=== PATIENT | male | born 1940 | race Caucasian/White ===

== ENCOUNTER 2017-03-01 10:53 | Inpatient (IN) | payer OTHER ==
[~2017-03-01] VITALS: Ht 182.9 cm; Wt 73.9 kg
[~2017-03-01 10:53] MED LIST: AMOXICILLIN 50500 MG PO; ASPIR 8181 MG PO; AUGMENTIN 875875 MG PO; CIPRO500 MG PO; CRESTOR10 MG PO; DUONEB 2.5-0.5 M3 ML INH; FLAGYL500 MG PO; KEPPRA 500 MG PER TUBE; KEPPRA 500 MG500 M1 PER TUBE; LIPITOR 10 MG10 M1 PER TUBE; LISINOPRIL5 MG PO; LOPRESSOR50 PO; MIRALAX17 GM PER TUBE; NICOTINE TRANSD14 M1 TRANSDERM; NICOTINE TRANSD21 M1 TRANSDERM; NITROGLYCERIN0.4 MG SUBLING; NORCO 10-325 T1 EACH PO; PEPCID20 MG PO; PLAVIX 75 MG TA75 M1 PO; TOPROL XL25 MG PO; UNICOMPLEX M TA1 TA1 PO; ZANTAC 150MG T150 MG PO
[2017-03-01 11:18] LABS: ABSOLUTE BASOPHILS 0.1 thou/uL (0.0-0.2); ABSOLUTE EOSINOPHILS 0.2 thou/uL (0.0-0.7); ABSOLUTE LYMPHOCYTES 2.7 thou/uL (0.8-5.3); ABSOLUTE MONOCYTES 0.7 thou/uL (0.0-1.2); ABSOLUTE NEUTROPHILS 4.6 thou/uL (1.6-8.1); BASOPHILS 1.1 %; EOSINOPHILS 1.8 %; HEMATOCRIT 44.4 % (42.0-52.0); LYMPHOCYTES 33.1 %; MCH 32.2 pg (26.0-34.0); MCHC 33.7 g/dL (28.0-37.0); MCV 95.4 fL (80.0-100.0); MPV 6.7 fl. (7.2-11.1); NUCLEATED RBCS 0 /100WBC; PLATELET COUNT* 250 thou/uL (150-400); RBC 4.65 mil/uL (4.50-6.00); RDW-CV 12.9 % (10.5-14.5); WBC 8.3 thou/uL (4.0-11.0)
[2017-03-01 11:23] LABS: ANION GAP 5 mmol/L (7-16); BUN 20 mg/dL (7-18); CALCIUM 9.3 mg/dL (8.5-10.1); CHLORIDE 102 mmol/L (98-107); CO2 31 mmol/L (21-32); CREATININE 1.1 mg/dL (0.6-1.3); GLUCOSE 90 mg/dL (70-99); POTASSIUM 4.3 mmol/L (3.5-5.1); SODIUM 138 mmol/L (136-145)
[2017-03-01 11:26] LABS: URINE BILIRUBIN NEGATIVE (Negative); URINE BLOOD NEGATIVE (Negative); URINE CLARITY CLEAR; URINE COLOR YELLOW; URINE GLUCOSE-RANDOM NEGATIVE (Negative); URINE KETONES NEGATIVE (Negative); URINE LEUKOCYTES-REFLEX 1+ (Negative); URINE NITRITE-REFLEX NEGATIVE (Negative); URINE PROTEIN NEGATIVE (Negative); URINE SPECIFIC GRAVITY <= 1.005 (1.005-1.030); URINE UROBILINOGEN 0.2 E.U./dl (0.2-1.0)
[2017-03-01 11:28] LABS: APTT 28.7 Seconds (25.0-31.3); INR 1.1; PROTIME 10.5 Seconds (9.20-11.50)
[2017-03-01 11:34] LABS: ALBUMIN 3.9 g/dL (3.4-5.0); ALKALINE PHOSPHATASE 61 U/L (46-116); NT-PRO BRAIN NAT PEPTIDE 67 pg/mL (<300); SGOT 22 U/L (15-37); SGPT 24 U/L (30-65); TOTAL BILIRUBIN 0.5 mg/dL (<0.1-1.0); TOTAL PROTEIN 7.8 g/dL (6.4-8.2); TROPONIN-I LEVEL <0.06 ng/mL (<0.06)
[2017-03-01 11:36] LABS: BACTERIA-REFLEX None Seen /HPF (None Seen); CASTS None Seen /LPF (None Seen); CRYSTALS None Seen /LPF (None Seen); SQUAMOUS NONE SEEN /LPF (0-3); URINE RBC None Seen /HPF (0-2); URINE WBC-REFLEX 0-5 Rare /HPF (0-5)
[2017-03-01 15:32] VITALS: BP 91/51
--- NOTE | 2017-03-01 16:42 | EKG ---
[place] [address] ELECTROCARDIOGRAM REPORT Name: JEAN PRICE Room: [place] [address] ADM IN [facility]#: [id number] Admission: 03/01/17 Attend Phys: Madelaine Christopher Discharge: Date of : 44 Report #: [id number] THIS REPORT FOR: //name// [facility] ED Test Date: 2017-03-01 Test Time: 11:20:04 Pat Name: JEAN PRICE Department: Room: [facility] Gender: Systems Technologist: Guilherme DENISE : 1940 Requested By: Víctor Falcon Order Number: [id number] MD: Anastacio Flood Measurements Intervals [place] Rate: 62 P: 71 WV: 185 QRS: 44 QRSD: 89 T: 52 QT: 413 QTc: 420 Interpretive Statements Sinus rhythm Compared to ECG 02/04/2016 10:21:23 No significant changes Electronically Signed On 03-01-2017 16:42:15 BIOLOGY ADJUNCT INSTRUCTOR by Anastacio Flood [email or web address] <ELECTRONICALLY SIGNED> By: Anastacio Flood MD, [facility] 03/01/17 1642 1120 1120 Anastacio Flood MD, [facility] /EPI
[2017-03-01 16:43] VITALS: BP 104/66
[2017-03-01 17:00] VITALS: BP 128/70
[2017-03-01 20:00] VITALS: BP 115/68
[2017-03-01 21:40] LABS: CHOLESTEROL 148 mg/dL (<200); HDL CHOLESTEROL 57 mg/dL (>40); LDL CHOLESTEROL 84 mg/dL (<100); TC:HDL 2.6 Ratio (Not establshd); TRIGLYCERIDE 39 mg/dL (<150); VLDL 8 mg/dL (<40)
[2017-03-01 21:41] LABS: SERUM ASSESSMENT Clear
[2017-03-02] VITALS: BP 84/48
[2017-03-02 04:00] VITALS: BP 111/57
[2017-03-02 08:00] VITALS: BP 113/68
[2017-03-02 12:00] VITALS: BP 107/52
[2017-03-02 16:00] VITALS: BP 114/52
[2017-03-02 22:00] VITALS: BP 110/56
[2017-03-03] VITALS (8 sets, daily range): BP systolic 94–140; BP diastolic 42–70
[2017-03-03 04:09] LABS: GLYCOHEMOGLOBIN (HGB A1C) 5.3 % (4.8-5.6)
[2017-03-03 10:34] LABS: HEMATOCRIT 34.4 % (42.0-52.0)
[2017-03-03 10:35] LABS: HEMOGLOBIN 11.7 gm/dL (14.0-18.0)
[2017-03-03 10:40] LABS: CALCIUM 8.3 mg/dL (8.5-10.1); CREATININE 1.1 mg/dL (0.6-1.3); POTASSIUM 4.2 mmol/L (3.5-5.1)
--- NOTE | 2017-03-03 13:22 | OP ---
[facility] [address] [place] [address] OPERATIVE REPORT Name: JEAN PRICE Room: [address] IN [facility]#: [id number] Admission: 03/01/17 Attend Phys: Madelaine Christopher Discharge: Date of : 44 Report #: [id number] THIS REPORT FOR: //name// CC: Ania Crenshaw DATE OF SERVICE: 03/03/2017 PREOPERATIVE DIAGNOSIS: Symptomatic high-grade left carotid artery stenosis. POSTOPERATIVE DIAGNOSIS: Symptomatic high-grade left carotid artery stenosis. OPERATION: 1. Left carotid endarterectomy with bovine pericardial patch angioplasty. 2. Completion intraoperative duplex. SURGEON: Alejandro Thompson DO CARE ADMINISTRATIVE TECH: SUSANNE Mckeon ANESTHESIA: General. ESTIMATED BLOOD LOSS: 150 mL. FLUIDS: 1500 crystalloid. URINE OUTPUT: None. SPECIMENS: Left carotid plaque. COMPLICATIONS: None. IMPLANTS: A 0.8 x 8 Bovine pericardial patch in the left carotid artery. FINDINGS: He had a 95% soft friable stenosis within the left carotid artery. This endarterectomized well. Completion duplex demonstrated no intraluminal defects with excellent continuous diastolic flow through the internal carotid artery. He looked neurologically intact in the operating room. CLINICAL HISTORY: The patient is a 76-year-old man who was initially seen in outpatient for asymptomatic carotid stenosis; however, he subsequently 3 days prior to admission developed some left facial numbness. This resolved spontaneously. It was felt that he is probably now experiencing TIA symptoms. He was taken today for carotid endarterectomy and stroke risk reduction. DETAILS OF PROCEDURE: After informed consent was obtained, the patient was [facility] [address] [place] [address] OPERATIVE REPORT Name: ALBERTJEAN Edwin Room: [address] IN [facility]#: [id number] Admission: 03/01/17 Attend Phys: Madelaine Christopher Discharge: Date of : 44 Report #: [id number] taken to the operating room and placed on the OR bed in supine position. He was administered general anesthesia by the anesthesia team. Left neck was prepped and draped in usual sterile fashion. Full timeout was performed identifying correct patient and procedure. Next, a longitudinal incision was made along the anterior border of sternocleidomastoid. Dissection was carried down through skin and subcutaneous tissues, both sharply with electrocautery. The carotid sheath was entered. The facial vein was identified, was ligated between 2-0 silk ties and divided. The vagus nerve was retracted in posterolateral position with the jugular vein. The common carotid artery was circumferentially mobilized and controlled with umbilical tape and Rumel tourniquet. I then dissected out the external and superior thyroid arteries and controlled these with Silastic vessel loops in Rogers fashion. I then dissected out the distal internal carotid artery and controlled with a Silastic vessel loop. At this point, I administered 8000 units of intravenous heparin. This allowed to circulate for 3 minutes. I then sequentially clamped the internal, external and common carotid arteries. I made an arteriotomy, extended with Rogers scissors in the normal common and internal carotid artery. I then placed a 10-Chinese [place] shunt in standard fashion. Doppler interrogation confirmed flow through the shunt. I then performed a standard endarterectomy with eversion endarterectomy of the external carotid artery. I tailored to good distal endpoint of the internal carotid artery. I freed the artery of all intimal defects. Flushed numerous times with heparinized saline. Once satisfied with the endarterectomy, I then sewed a Bovine pericardial patch in place with running 6-0 Prolene suture. Prior to completion of the suture line, the shunt was removed. The carotid was sequentially reclamped. Again, flushed it with heparinized saline, allowed the arteries to fore and backbleeding and flushed with heparinized saline. I then completed the suture line, restored flow first up the external carotid artery and after several heartbeats to the internal carotid artery. I then performed completion intraoperative duplex. Again, this demonstrated no intraluminal defects with good continuous diastolic flow through the internal carotid artery. I then partially reversed the heparin with 50 mg protamine. Once hemostasis was ensured in the wound, the wound was irrigated with antibiotic solution and was closed in layers with 2-0 and 3-0 Vicryl, 4-0 Monocryl in skin and Dermabond was applied. All sponge, sharp and instrument counts were reported as correct x 2. He tolerated the procedure well and was extubated in the operating room, neurologically intact, moving everything appropriately. <ELECTRONICALLY SIGNED> By: Alejandro Thompson DO 03/03/17 1322 1042 [id number] Thompson DO /nt
[2017-03-03 14:54] LABS: CALCIUM 8.7 mg/dL (8.5-10.1); CREATININE 1.1 mg/dL (0.6-1.3); MAGNESIUM 1.9 mg/dL (1.8-2.4); POTASSIUM 4.4 mmol/L (3.5-5.1)
[2017-03-04] VITALS (12 sets, daily range): BP systolic 86–134; BP diastolic 42–54
[2017-03-04 05:30] LABS: ABSOLUTE BASOPHILS 0.1 thou/uL (0.0-0.2); ABSOLUTE LYMPHOCYTES 1.5 thou/uL (0.8-5.3); ABSOLUTE MONOCYTES 0.8 thou/uL (0.0-1.2); ABSOLUTE NEUTROPHILS 6.3 thou/uL (1.6-8.1); BASOPHILS 0.6 %; EOSINOPHILS 0.4 %; HEMATOCRIT 34.3 % (42.0-52.0); HEMOGLOBIN 11.8 gm/dL (14.0-18.0); LYMPHOCYTES 17.4 %; MCH 32.6 pg (26.0-34.0); MCHC 34.3 g/dL (28.0-37.0); MONOCYTES 8.7 %; MPV 7.1 fl. (7.2-11.1); NUCLEATED RBCS 0 /100WBC; PLATELET COUNT* 180 thou/uL (150-400); POLYS 72.9 %; RBC 3.61 mil/uL (4.50-6.00); RDW-CV 12.3 % (10.5-14.5); WBC 8.6 thou/uL (4.0-11.0)
[2017-03-04 06:11] LABS: CALCIUM 8.5 mg/dL (8.5-10.1)
[2017-03-04] MEDS ORDERED: NORCO 5-325 TA1 EACH PO (10:54)
--- NOTE | 2017-03-04 12:13 | S ---
[address] [address] SURGICAL PATH RPT PROCEDURE Name: JEAN PRICE Room: [address] IN [facility].#: [id number] Admission: 03/01/17 Date of : 44 Discharge: Report #: [id number] Path Case #: [id number] PATHOLOGY REPORT COLLECTION DATE: 03/03/2017 RECEIVED DATE: 03/03/2017 SUBMITTING PHYS: Dr. Alejandro Thompson OTHER PHYS: Dr. Urban Viera SPECIMEN(S) RECEIVED: A.Left carotid plaque * * * * * * * * * * * * FINAL DIAGNOSIS: Left carotid plaque: - Fibrointimal atherosclerotic plaque with prominent calcification. (TALA:pit; 03/04/2017) PATHOLOGIST: Julio Cesar Miller M.D. REPORT ELECTRONICALLY SIGNED BY: Julio Cesar Miller M.D. DATE/TIME: 03/04/2017 12:13 * * * * * * * * * * * * GROSS PATHOLOGY: The specimen is received in formalin, labeled "RjJean sibley, left carotid plaque," and consists of 2 segments of yellow-greene rubbery to calcified soft tissue measuring 2.5 x 1.0 x 0.9 cm and 1.1 x 0.6 x 0.2 cm. The specimens are approximately 60% calcified. Fiberglass Pipe Covering Supervisor sections are submitted in cassette A1 following decalcification. (SDY; 03/03/2017) CLINICAL HISTORY: Left carotid artery stenosis INITIAL CPT CODE(S): A; 20973, 07859 Professional services performed by [facility] at [facility] [address] [place] [address] Technical services performed by [facility] at [address] [place] [address], [facility] [address], [place] [address]. [facility] [address] [facility] [place] [address] SURGICAL PATH RPT PROCEDURE Name: JEAN PRICE Room: [facility] IN [facility].#: [id number] Admission: 03/01/17 Date of : 44 Discharge: Report #: [id number] Path Case #: [id number] [facility] [address] [address] PHONE: [phone] DIRECTOR: Jordan Flor M.D. * * * END OF REPORT * * *
--- NOTE | 2017-03-11 20:10 | CON ---
[address] [address] CONSULTATION Name: JEAN PRICE Room: [address]#: [id number] Admission: 03/01/17 Attend Phys: Madelaine Christopher Discharge: 03/04/17 Date of : 44 Report #: [id number] THIS REPORT FOR: //name// CC: Ania Crenshaw DATE OF SERVICE: 03/02/2017 HISTORY OF PRESENT ILLNESS: This is a 76-year-old male patient who was evaluated for any neurological etiology for the patient's numbness on the left side of the face. This patient presented to emergency room with recurrent episode of left-sided numbness of the face. He indicated that it did not involve the left upper or left lower extremity. The episodes were transient and mild and lasted about 10 minutes. They came spontaneously and then resolved spontaneously. There was no headache associated with it and there was no motor deficit associated with it. Presently, he is asymptomatic. REVIEW OF SYSTEMS: Indicate that he had a cardiac arrest in 2014. At that time, he was diagnosed with PR and was managed. He denies any history of TIAs or any stroke in the past. He has been a smoker for a long time and still continued to smoke. He does indicate he has hypertension, but his hypertension is reasonably controlled with the medications. He does take aspirin and indicate that he takes some cholesterol medication. He does not know what cholesterol medications he is on and the best I can tell, he is not on any statin while in the hospital. His LDL during this admission was 84, although his HDL is 57. He feels back to his baseline. He is hard of hearing, but his vision is fine and he does not have any chest pain or respiratory difficulty, GI, , musculoskeletal, constitutional, dermatological, hematological, psychiatric, throat or endocrine symptom associated with present symptomatology. PAST MEDICAL HISTORY: Negative for TIA. FAMILY HISTORY: Negative for early age stroke. SOCIAL HISTORY: He does not drink any alcohol on a regular basis, but does drink alcohol socially. He does smoke. PHYSICAL EXAMINATION: The patient's examinations indicate he is alert, responsive, and oriented. His speech, concentration, fund of knowledge and memory is at his baseline. Cranial nerve examination 2-12 is unremarkable. He has a symmetrical strength, sensation, reflexes and tone in all 4 extremities. There is no cerebellar sign or papilledema. He is able to ambulate without any assistance. He is a very well-developed individual who does not have any dysmorphic features of eyes, ears and face. His vision looks adequate, but [place] [address] CONSULTATION Name: JEAN PRICE Room: [address]#: [id number] Admission: 03/01/17 Attend Phys: Madelaine Christopher Discharge: 03/04/17 Date of : 44 Report #: [id number] for a long time. He does not have any carotid bruit in spite of his stenosis at least any the best I can tell, he does not have a thyroid mass. His pulses are somewhat difficult to feel, but he has no edema, cyanosis or jaundice. Cardiac examination shows normal heart sound and there is no atrial fibrillations or murmur. No respiratory difficulty or any rhonchi on either side. His vital signs indicate a blood pressure of 113/68, respiration is 18, pulse is 71, and temperature 98.8. His blood pressure has fallen down when he has been here. He had lab done and his white count is normal. Cholesterol is as described above. Imaging studies indicate that MRI of the brain showed no acute process. CTA demonstrates finding consistent with a left carotid stenosis. MRA was unremarkable. IMPRESSION: 1. Asymptomatic left carotid stenosis. 2. Facial numbness on the left side, which will not correlate with the patient's left-sided paresthesias on the face. He had a recent dental work done and that may be related to that. 3. Some episodes of low blood pressure, that will be worrisome in this patient with a tight carotid stenosis and can lead to ischemic changes to the brain. So far, there is no evidence for that. I will suggest keeping his blood pressure on the higher side. 4. I discussed above with him and I discussed with him asymptomatic carotid stenosis and management of that. He has decided that he wants to have the surgery done and in fact he is already scheduled for surgery. He understands the situations in that regard. 5. He was instructed to stop smoking and hopefully he will work on it. RECOMMENDATIONS: 1. Keep his blood pressure high until his surgery was accomplished. 2. I do not see him on statin and I think it will be desirable to keep him on statin. 3. I will suggest a full dose of aspirin. 4. I do not think the symptoms on the face were related to the patient's carotid stenosis or any neurological etiology, which can be found. Those symptoms have resolved and please let us know if those symptoms reoccur and then he can follow up with us in the office or we can follow him up. Thank you very much for this referral and if you have any questions, please feel free to contact me. We will follow up this patient only as necessary. Thank you very much. <ELECTRONICALLY SIGNED> By: Lake Chong MD 03/11/172009 0915 1017Lake Chong MD /nt
== END 2017-03-04 13:15 | disposition home or self-care (01) | DRG 38 ==
LOC: M.ERS 10:53 → M.2W 11:43 → M.TBA-ER 11:43 → M.2W 16:50 → M.TBA 03-03 10:00 → M.ICU 03-03 12:45
PROVIDERS: Family Medicine; Internal Medicine; Surgery; ADMIT Internal Medicine
PROC: 03CL0ZZ Extirpation of Matter from Left Internal Carotid Artery, Open Approach (ICD-10-PCS; principal; 2017-03-03)
PROC: 03UL0JZ Supplement Left Internal Carotid Artery with Synthetic Substitute, Open Approach (ICD-10-PCS; principal; 2017-03-03)
DX: I65.22 Occlusion and stenosis of left carotid artery (principal); R71.0 Precipitous drop in hematocrit; I25.10 Atherosclerotic heart disease of native coronary artery without angina pectoris; F17.210 Nicotine dependence, cigarettes, uncomplicated; I48.91 Unspecified atrial fibrillation; I10 Essential (primary) hypertension; E78.5 Hyperlipidemia, unspecified; Z79.82 Long term (current) use of aspirin; Z79.899 Other long term (current) drug therapy; Z88.8 Allergy status to other drugs, medicaments and biological substances

== ENCOUNTER → 2017-07-26 | Outpatient (CLI) | payer OTHER ==
[~2017-07-26] MED LIST changes: +NORCO 5-325 TA1 EACH PO
== END ==
LOC: M.RAD 11:00 → M.CT 11:30
DX: M47.892 Other spondylosis, cervical region (principal); C34.92 Malignant neoplasm of unspecified part of left bronchus or lung; C34.91 Malignant neoplasm of unspecified part of right bronchus or lung; Z88.8 Allergy status to other drugs, medicaments and biological substances

== ENCOUNTER → 2021-03-31 | Outpatient (CLI) | payer MEDICARE ==
--- NOTE | 2021-03-31 16:38 | CARDNUC ---
[place] [address] CARDIAC NUCLEAR IMAGING REPORT Name: JEAN PRICE Room: [facility]#: [id number] Admission: 03/31/21 Attend Phys: Nany Diehl, Discharge: Date of : 44 Date of Service: 03/31/21 1638 Report #: [id number] THIS REPORT FOR: cc: Ania Viera Linda J. DO Liston, Michael J. MD [facility] ~ APPROVED REPORT Study performed: 03/31/2021 14:18:54 Exam: Nuclear Stress Test Indication: Dyspnea Patient Location: Out-Patient Stress Tech: LUISANA Stress Nurse: Luisana Santizo RN Ht: 6 ft 0 in Wt: 148 lbs BSA: 1.87 m2 BMI: 20.06 Medical History Medical History: CAD s/p [place], CAD s/p stent, HTN, Hyperlipidemia Medications: ASA-81, ROSUVASTTIN, METOPROLOL Allergies: STATINS Cardiac Risk Factors: Age, HTN, Hyperlipidemia Previous Cardiac Procedures: PCI, Myocardial infarction Exercise History: Indeterminate Meds Held (24 hrs): METOPROLOL Stress Test Details Stress Test: Pharmacologic stress testing performed using 0.4 mg of regadenoson per 5 mL given IV over 10 seconds. Reason for pharmacologic stress test: physical limitation. HR Resting HR: 83 bpm Max Heart Rate (APMHR): 142 bpm Max HR Achieved: 101 bpm Target HR (85% APMHR): 120 bpm % of APMHR: 71 Recovery HR: 90 bpm BP Resting BP: 134/74 mmHg Max BP: 147/80 [place] [address] CARDIAC NUCLEAR IMAGING REPORT Name: JEAN PRICE Room: [facility]#: [id number] Admission: 03/31/21 Attend Phys: Nany Diehl, Discharge: Date of : 44 Date of Service: 03/31/21 1638 Report #: [id number] Resting ECG: Sinus Rhythm Stress ECG: Sinus Tachycardia ST Change: None Arrhythmia: None Recovery ECG: Sinus Rhythm Recovery ST Change: None Recovery Arrhythmia: None Clinical Reason for Termination: Completed protocol The patient tolerated Lexiscan infusion without significant cardiac symptoms. Nurse Comments GAIT TO UNSTEADY TO WALK ON TREADMILL Stress ECG Conclusion The baseline twelve-lead EKG shows sinus rhythm without significant ST segment or T wave abnormality. EKGs obtained during and post Lexiscan infusion show sinus rhythm and sinus tachycardia with no significant ST segment or T wave changes when compared to baseline. There were no stress-induced arrhythmias. NM EXAM: Myocardial Perfusion REST/STRESS Resting Data Rest SPECT myocardial perfusion imaging was performed in supine position 30 minutes following the intravenous injection of 9.9 mCi of Tc-99m Sestamibi. Time of rest injection: 13:10 The images were gated to evaluate regional wall motion and calculate left ventricular ejection fraction. Administration Route: IV Pharmacologic Stress Pharmacologic stress test was performed by injecting Regadenoson 0.4 mg IV push followed by the intravenous injection of 35.5 mCi of Tc-99m Sestamibi. Time of stress injection: 14:15 Administration Route: IV Heart Rate at time of stress injection: 101 bpm. Gated Stress SPECT was performed 45 minutes after stress injection. The images were gated to evaluate regional wall motion and calculate left [place] [address] CARDIAC NUCLEAR IMAGING REPORT Name: JODIEMISSYJEAN L Room: [facility]#: [id number] Admission: 03/31/21 Attend Phys: Nany Diehl, Discharge: Date of : 44 Date of Service: 03/31/21 1638 Report #: [id number] Prone imaging was performed. Study Quality Study: Good Artifact: No artifact Study Data At rest, the left ventricular ejection fraction was 68%.. Post stress, the left ventricular ejection was 63%.. TID = 1.00. Perfusion Perfusion images obtained at rest and post Lexiscan stress show uniform uptake of the radioisotope throughout the myocardium. There were no defects to suggest infarct or ischemia. Wall Motion Normal left ventricular wall motion. Nuclear Conclusion ECG Findings: negative for ischemia Clinical Findings: negative for ischemia Nuclear Findings: negative for ischemia Exercise Capacity: not assessed Left Ventricular Function: normal Risk Study: low Perfusion images show no defect to suggest infarct or ischemia. Left ventricular systolic function appears normal on gated studies. This is a low risk study. <Conclusion> The baseline twelve-lead EKG shows sinus rhythm without significant ST segment or T wave abnormality. EKGs obtained during and post Lexiscan infusion show sinus rhythm and sinus tachycardia with no significant ST segment or T wave changes when compared to baseline. There were no stress-induced arrhythmias. <ELECTRONICALLY SIGNED> By: Anastacio Flood MD, FACC 03/31/21 1638 1638 1638 Anastacio Flood MD, FACC /INF
== END ==
LOC: M.NUC 03-16 11:37
PROVIDERS: ATTEND Nurse Practitioner
DX: I25.10 Atherosclerotic heart disease of native coronary artery without angina pectoris (principal); I47.2 Ventricular tachycardia; I10 Essential (primary) hypertension; E78.00 Pure hypercholesterolemia, unspecified; Z79.899 Other long term (current) drug therapy; Z88.8 Allergy status to other drugs, medicaments and biological substances